=== PATIENT | male | born 1955 | race Caucasian/White ===

== ENCOUNTER → 2020-05-04 06:55 | Outpatient (CLI) | payer MEDICARE, SELFPAY ==
--- NOTE | 2020-05-04 06:58 | CA_ITS ---
APPROVED REPORT Exam: Pharmacologic Technologist: Marla Haas Ht: 5 ft 6 in Wt: 200 lbs BSA: 2.00 m2 HR: 59 bpm BP: 145/71 mmHg Indications: Shortness of Breath Medical History Medications: Amlodipine,,,,, Lisinopril,,,,, Levothyroxine,,,,, Isosorbide,,,,, Metformin,,,,, Gabapentin,,,,, Carvedilol,,,,, FOLIC ACID,,,,, CloPIdogrel,,,,, Diclofenac,,,,, Nitroglycerin,,,,, Vitamin B1,,,,, Stress Test Details Test: LEXISCAN HR Resting HR: 60 bpm Max Heart Rate (APMHR): 157 bpm Max HR Achieved: 85 bpm Target HR (85% APMHR): 133 bpm % of APMHR: 54 Recovery HR: 72 bpm BP Resting BP: 145.0/71.0 mmHg Max BP: 145.0/71.0 mmHg Recovery BP: 140.0/65.0 mmHg ECG Clinical Exercise duration: 04:02 min Highest Stage Achieved: Exercise capacity: 1.0 METs Stress ECG Conclusion Resting ECG: Normal sinus rhythm, right axis deviation. Symptoms: Shortness of air, mild nausea, headache Arrhythmias/Ectopy: None ST-T Changes: No significant changes. Conclusion: Unremarkable Lexiscan stress. Myoview images reported separately. Test Summary . . Myoview Injected . . . . Stop exercise at 04:02 . . . . Electronically signed by : Joey Mata, 05/04/2020 22:16:09
--- NOTE | 2020-05-04 06:58 | NM_ITS ---
APPROVED REPORT Exam: Nuclear Stress Test Indication: Chest pain, SOB, Fatigue, HTN, CAD, Hx of [place], DM, High cholesterol, Tobacco use, Family history Patient Location: Outpatient Stress Tech: Marla Haas [place] Tech:Emma Mallory, ARRT, RT (R)(N) Ht: 5 ft 6 in Wt: 200 lbs HR: 59 bpm BP: 145/71 mmHg BSA: 2.00 m2 BMI: 32.2 History: Chest pain, SOB, Fatigue, HTN, CAD, Hx of [place], DM, High cholesterol, Tobacco use, Family history Procedure: Patient received a 0.4 mg of intravenous Lexiscan, resting heart rate 59 bpm, resting blood pressure 145/71 mmHg, with Lexiscan maximum heart rate achived was 82 bpm which is Less than 85 % of the maximum predicted heart rate and blood pressure was 133/65 mmHg. With Lexiscan, patient denied any complaint of chest pain. Electrocardiogram Resting electrocardiogram showed sinus rhythm, with Lexiscan there is less than 1.[address] segment depression noted from the baseline EKG. The EKG portion of the Lexiscan Myoview is nondiagnostic. Cardiac Stress and Resting SPECT Images: Cardiac Stress and Resting SPECT images were obtained using technetium 99m Myoview 29.9 mCi stress and 10.45 mCi at rest. Gated SPECT for analysis of segmental wall motion and calculation of the ejection fraction also done. Cardiac stress and resting SPECT images show uniform myocardial activity without segmental perfusion abnormality, computer derived ejection fraction is over 65% with no regional wall motion abnormality, right ventricle is normal size and contractility. Conclusion: 1. The EKG portion of the Lexiscan Myoview is nondiagnostic. 2. No scintigraphic evidence of reversible ischemia seen, computer derived ejection fraction is over 65% with no regional wall motion abnormality, right ventricle is normal size and contractility 3. Normal Lexiscan Myoview study. Electronically signed by : Joey Mata, 05/04/2020 22:17:57
--- NOTE | 2020-05-04 06:58 | CA_ITS ---
APPROVED REPORT EXAM: Comprehensive 2D, Doppler, and color-flow Echocardiogram New Product Trainer: Alison Doyle RVT Ht: 5 ft 6 in Wt: 200lbs BSA: 2.00 BP: 124/63 mmHg Indications: SOA,CP,EDEMA,HTN,PALPS,FATIGUE,SMOKER,JHONATAN,PAD,CAD,GERD TDS 2D Dimensions LVOT 1.96 cm (M/F) 1.5-2.5 M-Mode Dimensions RVDd 3.05 cm (0.9-2.6) LVDd 5.10 cm (3.5-5.7) LVDs 3.54 cm (3.5-5.7) IVSd 0.76 cm (0.6-1.1) PWd 0.80 cm (0.6-1.1) EF (Teich) 57.80% FS 30.60% EDV (Teich) 123.80 mL ESV (Teich) 52.30 mL LV Diastology E/A Ratio 1.21 Mitral Valve MV A Velocity 70.00 (40-130 cm/s) Left Ventricle Left atrium is mildly enlarged, left ventricle is normal size, mild concentric left ventricular hypertrophy, visually estimated ejection fraction 55% with no regional wall motion abnormality, diastolic parameters are within normal range. Right Ventricle Right atrium and right ventricular normal size and contractility. Aortic Valve Aortic valve is minimally thickened and fibrosed, there is no aortic stenosis or aortic insufficiency. Mitral Valve Mitral valve is grossly normal, there is mild mitral regurgitation. Tricuspid Valve Tricuspid valve grossly normal, there is mild tricuspid regurgitation, tricuspid regurgitation jet velocity is inadequate for calculation of the right ventricular systolic pressure. Pulmonic Valve Pulmonic valve is poorly visualized. Great Vessels Aortic root is normal size. Pericardium No significant pericardial effusion noted. Conclusion 1. Normal left ventricular size, mild concentric left ventricular hypertrophy, visually estimated ejection fraction 55% with no regional wall motion abnormality, diastolic parameters are within normal range. 2. Mild mitral and tricuspid regurgitation. 3. No significant pericardial effusion noted. Electronically signed by : Joey Mata, 05/04/2020 22:53:25
--- NOTE | 2020-05-04 07:53 | HMH.ITSHM ---
Current Home Medications as stated by this patient Chilo Engle or cash posting representative. []RANOLAZINE NITRO METFORMIN VITAMIN B12 LISINOPRIL LEVOTHYROXINE ISOSORBIDE GABAPENTIN FOLIC ACID DICLOFENAC CLOPIDOGREL CARVEDILOL CILOSTAZOL AMLODIPINE
== END ==
LOC: RAD 06:57
PROVIDERS: PCP Emergency Medicine; Visit Provider Urology
DX: R06.00 Dyspnea, unspecified (principal); R42 Dizziness and giddiness; E78.5 Hyperlipidemia, unspecified; I11.9 Hypertensive heart disease without heart failure; I20.9 Angina pectoris, unspecified; I25.10 Atherosclerotic heart disease of native coronary artery without angina pectoris; I70.1 Atherosclerosis of renal artery; I77.9 Disorder of arteries and arterioles, unspecified; R00.2 Palpitations
CPT/HCPCS: 78452; 93017; 93306; A9502; J2785